=== PATIENT | male | born 1990 | race Asian ===

== ENCOUNTER → 2020-06-29 | Outpatient (CLI) | payer OTHER ==
[~2020-06-29] MED LIST: NO HOME MEDICATIONS
== END ==
LOC: ZCOL.LAB 15:52
DX: Z20.828 Contact with and (suspected) exposure to other viral communicable diseases (principal)

== ENCOUNTER → 2020-07-06 | Outpatient (CLI) | payer OTHER, BC | LOC: ZCOL.LAB 15:59 | DX: Z20.828 Contact with and (suspected) exposure to other viral communicable diseases (principal) ==